=== PATIENT | female | born 1950 | race Caucasian/White ===

== ENCOUNTER 2019-10-21 16:15 | Outpatient (CLI) | payer MEDICARE | END 2019-10-21 16:16 | disposition home or self-care (01) | LOC: CTENTCT 16:15 | PROVIDERS: ATTEND Student in an Organized Health Care Education/Training Program | DX: J32.9 Chronic sinusitis, unspecified (principal) | CPT/HCPCS: 70486 ==

== ENCOUNTER 2019-11-22 12:23 | Day surgery (SDC) | payer MEDICARE ==
[2019-11-21 13:34] VITALS: BMI 28.2
[~2019-11-22 12:23] MED LIST: Dexamethasone 20 MG/5 ML VIAL ONE; Glycopyrrolate 0.2 MG/ML 5 ML SYRINGE ONE; Lidocaine 1% PF 5 ML VIAL ONE; Ondansetron PF 4 MG/2 ML Vial ONE; PROPOFOL 200 MG/20 ML VIAL ONE; Rocuronium Bromide 10 MG/ML (10ML VIAL) ONE
[2019-11-22] MEDS ORDERED: AFRIN NASAL MIST 15 ML BOT ONE ×2 (13:00→13:37)
[2019-11-22 13:11] LABS: Hemoglobin 11.7 g/dL (12.0-16.0)
[2019-11-22 13:32] LABS: Anion Gap 17 mmol/L (10-20); BUN (Urea Nitrogen) 12 mg/dL (9.8-20.1); Calc. Creatinine Clearance 77 mL/min (70-130); Calcium 9.4 mg/dL (7.8-10.44); Carbon Dioxide 22 mmol/L (23-31); Chloride 101 mmol/L (98-107); Estimated GFR-MDRD 63; Glucose 92 mg/dL (80-115); Potassium 3.8 mmol/L (3.5-5.1); Sodium 136 mmol/L (136-145)
[2019-11-22] MEDS ORDERED: Lidocaine 1% w/Epinephrine 1:100K 20 ML VIAL ONE (13:37)
[2019-11-22] MEDS ORDERED: Bacitracin Zinc Ointment 30 gm TUBE ONE (13:37)
[2019-11-22] MEDS ORDERED: Propofol 1,000 MG/100 ML VIAL IV ONE (14:47)
[2019-11-22] MEDS ORDERED: Fentanyl 100 MCG/2 ML VIAL ONE ×2 (14:47→18:39)
[2019-11-22] MEDS ORDERED: Lidocaine 2% Jelly 5 ML TUBE ONE (14:57)
[2019-11-22] MEDS ORDERED: Sodium Chloride 0.9% 0 ML ONE (15:16)
[2019-11-22] MEDS ORDERED: EPINEPHrine 1 MG/ML AMP ONE ×4 (15:16→16:30)
--- NOTE | 2019-11-23 10:32 | OP ---
DATE OF PROCEDURE: 11/22/2019 PREOPERATIVE DIAGNOSES: Right chronic rhinosinusitis with nasal polyposis, septal deviation, turbinate hypertrophy, and nasal valve collapse. POSTOPERATIVE DIAGNOSES: Right chronic rhinosinusitis with nasal polyposis, septal deviation, turbinate hypertrophy, and nasal valve collapse. PROCEDURES PERFORMED: Bilateral image guidance endoscopic sinus surgery, right maxillary antrostomy with removal of tissue inside the maxillary sinus, right total ethmoidectomy, right sphenoidotomy with removal of tissue from inside the sphenoid sinus, right frontal sinusotomy with removal of tissue from inside the frontal sinus, septoplasty, bilateral inferior turbinate submucosal reductions, bilateral lateralization of inferior turbinates, extensive removal of polyposis and repair of nasal valve stenosis. PERMIT: Procedures, benefits, and risks including those of bleeding, infection, injury from anesthesia, allergic reactions, cerebrospinal fluid leak necessitating revision or repair and alternatives were reviewed with the patient and family, who expressed understanding of the information. The consent form was signed and witnessed and the paper copy of the consent form is available for review in the paper chart. INDICATION: Female patient presenting to clinic with exam and radiographic findings of chronic rhinosinusitis and remodeling of the sinuses on the right as well as significant nasal polyposis, facial pain and pressure, recurrent infection, needing several rounds of antibiotics as well as steroids. The patient was brought to the operating room now for operative treatment. ASSISTANTS: None. FINDINGS: Significant right nasal polyposis, completely obstructed nasal cavity , sinuses, significant inflammation as well as scarring of the nasal sinuses. The right maxillary sinus was filled with what appeared to be allergic fungal mucin as well as purulence. Nasal polyposis was evident throughout. DESCRIPTION OF OPERATION: The patient was brought to the operating room and laid supine on the operating room table. General endotracheal anesthesia was administered. The head of the bed was elevated, and the septum was infiltrated bilaterally with 1% lidocaine with 1:100,000 epinephrine and 6 cottonoids were soaked with Afrin and were placed on the bilateral nasal cavities, 3 on each side. The patient was then prepped and draped in the usual fashion. Image guidance was then calibrated and used throughout the entirety of the case for localization. The nose was evaluated endoscopically, and significant right nasal polyposis was present, and an oscillating debrider was then used to remove nasal polyposis. The patient was seen to have a significant septal deviation, which was occluding the sinuses and preventing further sinus surgery. At this point in time, a [place] incision was made on the left side, followed by elevation of the mucoperichondrial flap on the left side. After elevation of the mucoperichondrial flap, a quadrangular cartilaginous incision was made roughly 2 cm from the columella, and the contralateral mucoperichondrial flap was elevated. A swivel knife was used to remove the deviated cartilaginous portion as well as double-action scissors were used to cut the bony deviation superiorly and inferiorly, and then a Rachael was used to remove the bony deviation with care not to destabilize the caudal septum or the dorsal septum. After the deviation of the septum was removed the mucoperichondrial flap incision was then closed with 5-0 chromic suture to close the Nathaniel incision. Bilateral inferior turbinates were then lateralized using a Manriquez elevator. Next, the sinuses were then evaluated on the right side. Maxillary antrostomy was performed utilizing a backbiter and oscillating debrider. After the maxillary antrostomy was opened, there was significant thick purulent material. This copious material was then removed with a combination of straight and curved suction as well as irrigation, curved suction irrigators with a 60 mL syringe. After the material was completely removed, a 70-degree scope was then fitted and focused in order to evaluate the entire maxillary sinus and to confirm that the maxillary sinus was indeed clear. After the maxillary sinus antrostomy was opened, the anterior ethmoid bulla was taken down with an oscillating microdebrider followed by opening the superior medius with an oscillating microdebrider. The superior turbinate was identified and just medial to the superior turbinate, the opening of the sphenoid sinus was identified. The entire face of the sphenoid sinus was taken down utilizing two Kerrison punches as well as an oscillating microdebrider with removal of polypoid tissues inside the sinus as well as some purulence. The skull base was identified from posterior near to anterior direction removing posterior and anterior ethmoid air cells, taking care to avoid injury to the cribriform plate of the lamina papyracea. This then led straight to the frontal sinus. The frontal sinus was then opened using a combination of an image-guided frontal sinus seeker and a chain punch. There was significant inflammation and bleeding in this area, which will require packing and waiting on several occasions. A small opening to the frontal sinus was achieved. However, there was significant inflammation in this area and significant thick bony changes from the frontal beak. After this was performed , the sinuses were then copiously irrigated and suctioned, and epinephrine-soaked pledgets were placed in order to control bleeding. After bleeding was controlled, NasoPore was then packed in the middle meatus. The middle turbinate had significant polyposis, and the bone of the middle turbinate had become very weak from polypoid pressure and only a small amount of the mucosa of the middle turbinate was left behind after polyps were removed. After the NasoPore was placed, the endoscopes were withdrawn, and the patient tolerated the procedure well without complications and was turned back to Anesthesia for emergence. Job ID: [id number] MTDD
--- NOTE | 2019-11-24 08:25 | EKG ---
Test Reason : PREOP Blood Pressure : / mmHG Vent. Rate : 077 BPM Atrial Rate : 077 BPM P-R Int : 140 ms QRS Dur : 080 ms QT Int : 364 ms P-R-T Axes : 049 040 025 degrees QTc Int : 411 ms Normal sinus rhythm Normal ECG When compared with ECG of 28-MAY-2015 14:34, No significant change was found Confirmed by DR. Irina PERKINS ([id number]) on 11/24/2019 8:25:25 AM Referred By: SUGAR Confirmed By:DR. Irina PERKINS
== END 2019-11-22 21:25 | disposition home or self-care (01) ==
LOC: SDC 12:23
PROVIDERS: ATTEND Student in an Organized Health Care Education/Training Program
PROC: 8E09XBZ Computer Assisted Procedure of Head and Neck Region (ICD-10-PCS; principal; 2019-11-22)
PROC: 09BT8ZZ Excision of Left Frontal Sinus, Via Natural or Artificial Opening Endoscopic (ICD-10-PCS; 2019-11-22)
PROC: 09BW8ZZ Excision of Right Sphenoid Sinus, Via Natural or Artificial Opening Endoscopic (ICD-10-PCS; 2019-11-22)
PROC: 09BX8ZZ Excision of Left Sphenoid Sinus, Via Natural or Artificial Opening Endoscopic (ICD-10-PCS; 2019-11-22)
PROC: 09BQ8ZZ Excision of Right Maxillary Sinus, Via Natural or Artificial Opening Endoscopic (ICD-10-PCS; 2019-11-22)
PROC: 09BR8ZZ Excision of Left Maxillary Sinus, Via Natural or Artificial Opening Endoscopic (ICD-10-PCS; 2019-11-22)
PROC: 09BS8ZZ Excision of Right Frontal Sinus, Via Natural or Artificial Opening Endoscopic (ICD-10-PCS; 2019-11-22)
PROC: 09TV8ZZ Resection of Left Ethmoid Sinus, Via Natural or Artificial Opening Endoscopic (ICD-10-PCS; 2019-11-22)
PROC: 09TU8ZZ Resection of Right Ethmoid Sinus, Via Natural or Artificial Opening Endoscopic (ICD-10-PCS; 2019-11-22)
PROC: 09TL8ZZ Resection of Nasal Turbinate, Via Natural or Artificial Opening Endoscopic (ICD-10-PCS; 2019-11-22)
PROC: 09SM0ZZ Reposition Nasal Septum, Open Approach (ICD-10-PCS; 2019-11-22)
PROC: 09QK0ZZ Repair Nasal Mucosa and Soft Tissue, Open Approach (ICD-10-PCS; 2019-11-22)
DX: J32.4 Chronic pansinusitis (principal); J33.9 Nasal polyp, unspecified; J34.2 Deviated nasal septum; J34.3 Hypertrophy of nasal turbinates; J34.89 Other specified disorders of nose and nasal sinuses; I10 Essential (primary) hypertension; Z79.82 Long term (current) use of aspirin; Z79.899 Other long term (current) drug therapy; Z88.5 Allergy status to narcotic agent
CPT/HCPCS: 80048; 85014; 85018; 93005; 93010; J0171; J1100; J2001; J2405; J2704; J3010

== ENCOUNTER 2020-11-23 11:22 | Outpatient (CLI) | payer MEDICARE | END 2020-11-23 11:23 | disposition home or self-care (01) | LOC: BICMAMMO 11:22 | PROVIDERS: ATTEND Family Medicine | DX: Z12.31 Encounter for screening mammogram for malignant neoplasm of breast (principal) | CPT/HCPCS: 77063; 77067 ==

== ENCOUNTER 2022-01-31 07:32 | Outpatient (CLI) | payer MEDICARE | END 2022-01-31 07:33 | disposition home or self-care (01) | LOC: ULT 07:32 | PROVIDERS: ATTEND Family Medicine | DX: R10.13 Epigastric pain (principal); K76.0 Fatty (change of) liver, not elsewhere classified; N28.1 Cyst of kidney, acquired | CPT/HCPCS: 76700 ==

== ENCOUNTER 2022-02-28 12:53 | Outpatient (CLI) | payer MEDICARE | END 2022-02-28 12:54 | disposition home or self-care (01) | LOC: BICMAMMO 12:53 | PROVIDERS: ATTEND Family Medicine | DX: Z12.31 Encounter for screening mammogram for malignant neoplasm of breast (principal) | CPT/HCPCS: 77063; 77067 ==

== ENCOUNTER 2022-10-15 10:20 | Outpatient (CLI) | payer MEDICARE | END 2022-10-15 10:21 | disposition home or self-care (01) | LOC: TBSIIMAG 10:20 | PROVIDERS: ATTEND Surgery | DX: S22.009A Unspecified fracture of unspecified thoracic vertebra, initial encounter for closed fracture (principal); M51.16 Intervertebral disc disorders with radiculopathy, lumbar region; G95.20 Unspecified cord compression; M43.8X4 Other specified deforming dorsopathies, thoracic region | CPT/HCPCS: 72072; 72110; 72148 ==

== ENCOUNTER 2023-05-15 14:30 | Outpatient (CLI) | payer MEDICARE | END 2023-05-15 14:31 | disposition home or self-care (01) | LOC: BICMAMMO 14:30 | PROVIDERS: ATTEND Family Medicine | DX: Z12.31 Encounter for screening mammogram for malignant neoplasm of breast (principal) | CPT/HCPCS: 77063; 77067 ==

== ENCOUNTER 2025-06-09 14:46 | Outpatient (CLI) | payer MEDICARE | END 2025-06-09 14:47 | disposition home or self-care (01) | LOC: BICMAMMO 14:46 | PROVIDERS: ATTEND Family Medicine | DX: Z12.31 Encounter for screening mammogram for malignant neoplasm of breast (principal); Z78.0 Asymptomatic menopausal state; M85.89 Other specified disorders of bone density and structure, multiple sites | CPT/HCPCS: 77063; 77067; 77080 ==